=== PATIENT | female | born 1985 | race Caucasian/White ===

== ENCOUNTER 2023-05-13 05:50 | Day surgery (SDC) | payer OTHER, SELFPAY ==
[2023-05-01 08:22] VITALS: BMI 19.8
[2023-05-01 10:38] VITALS: BMI 19.5
[2023-05-13] VITALS (8 sets, daily range): BP systolic 101–126; BP diastolic 54–82; PULSE 55–108; RESP 15–76; TEMP 36.1–36.8; O2SAT 100; BMI 19.7
--- NOTE | 2023-05-13 06:00 | W.PM.PROC2 ---
Procedure Note - Detailed Date of Procedure 05/13/23 Pre-op Diagnosis Micromastia Post-op Diagnosis Same Procedure Performed Bilateral breast fat grafting Surgeon Doron Maurice MD Anesthesia General Findings Wever sites: Abdomen, Flank, Back, Medial Thighs, Medial Knees Lipoaspirate: 600cc Fat grafting: Right breast: 85 cc Left breast: 85 cc Description of Procedure She is here today for the above procedures. Previously and again today the risks, benefits, alternatives were discussed in extensive detail. I wanted them to be very realistic about the risks involved as well as expectations. Again spent extensive time reviewing all her options and the limitations of her procedure. She understands she has very limited harvest and receipt site and the real limitations of this procedure for her in addition to traditional risks discussed. We discussed aftercare and what to monitor for. I was very upfront about the risks of wound breakdown leading to loss of skin, open wounds, fat necrosis, oil cysts, palpable masses and need for additional procedures with permanent deformity. We discussed DVT/PE risks and management. Made sure answered all of their questions to their satisfaction today and consent was obtained. She was marked in the preoperative holding area with their verification. The patient was taken to the operating room. Anesthesia was provided by anesthesiology. Placed prone on the operating room table with care taken to protect from injury. Prepped and draped in a standard sterile fashion. A surgical time-out was taken. Stab incisions were made and tumescent solution was infiltrated. Once adequate time was allowed for hemostasis a multihole 3mm fat harvest cannula was utilized to complete suction lipectomy in multiple planes and passes. This continued based on pre-operative planning, intra-operative observation, and rolling pinch test which were in full agreement. Wever was to a MicroAire gravity seperation cannister. Patient was then placed supine with care taken to protect from injury. Stab incisions were made and tumescent solution infiltrated. Suction lipectomy continued as described above. Once a maximal harvest of adipose was completed with verified gravity separation of the adipose tissue. The inferior fluid was removed and we utilized only the central adipose tissue. 50cc syringes were utilized to remove the adipose tissue. The suction tubing was trimmed and utilizing a 3mm cannula the adipose tissue was introduced into bilateral breast trough stab incisions. This was in multiple planes and passes with a MicroAire handpiece on vibratory motion. The automotive service assistant managed the syringes and advanced through tubing so I was able to focus on placement and cannula position throughout. This was based on preoperative planning and intraoperative observations which were in full agreement. The patient was placed in a sitting position at times to verify. Dressings were placed. [place] and taken to the PACU without difficulty. All instrument and sponge counts were correct at the end of the case. Estimated Blood Loss 20 Drains No Packing No Pathology None sent Complications No immediate complications Condition Stable Disposition PACU
[2023-05-13] MEDS: LACTATED RINGERS 1,000 ML 30 ML IV CONT ×2 (06:52→10:05)
--- NOTE | 2023-05-13 07:08 | WPDANESEPPF ---
Anes - Initial Pre Proc Eval Procedure: Operation Date: 05/13/23 07:30 Proposed Procedures p Bilateral Breast Fat Grafting - Doron Maurice MD Date/Time: 05/13/23 07:08 Surgeon: Doron Maurice MD Pre Op Diagnosis: Micromastia Patient Data Age: 37 Gender: F Height: 1.55 m Weight: 47.4 kg Last Vital Signs Temp 36.8 C 05/13/23 06:27 Pulse 69 05/13/23 06:27 Resp 16 05/13/23 06:27 BP 103/77 05/13/23 06:27 Pulse Ox 100 05/13/23 06:27 O2 Del Method Room Air 05/13/23 06:27 Allergies Allergy/AdvReac Type Severity Reaction Status Date / Time No Known Allergies Allergy Unknown Verified 05/13/23 06:17 Home Medications Medication Instructions Recorded Confirmed Type multivit with minerals-iron 18 1 tablet PO DAILY 05/01/23 05/13/23 History mg-folic ac 400 mcg-vit K 25 mcg tablet (Adults Multivitamin) Patient hx anesthesia problems: none Family hx anesthesia problems: none Results Review: All pre-operative results and documents have been reviewed as part of the pre-operative evaluation. [facility] Family History Family History (Updated 11/17/13 @ 07:13 by DOCTOR UNKNOWN) Grandparent Hypertension Diabetes mellitus Father Carcinoma of colon Malignant neoplasm of prostate Mother Family history of malignant neoplasm of cervix Social History Social History Smoking status: Never smoker Second hand tobacco smoke exposure: No Alcohol intake: current Drinks per week: 4 Alcohol use details: 4 GLASSES OF WINE PER WEEK Substance use: never Substance use type: does not use Living arrangements: with family Spiritual care concerns: No Anes - Eval Final PreProcedure Day of Procedure 05/13/23 07:08 Patient weight: normal Heart: regular rate and rhythm Lungs: clear to auscultation Airway: Mallampati scale class 1 Neurological: alert and oriented Last oral intake: >/= 8 hours ASA classification: I Emergent: no Anesthetic plan: proceed Anesthesia type and monitoring: general ETT and standard monitoring Results Review: All pre-operative results and documents have been reviewed as part of the pre-operative evaluation. Informed Consent: The patient's anesthetic plan and its attendant risks and benefits were discussed with the patient/family/POA. Questions were solicited and answers provided to the satisfaction of the patient/family/POA.
--- NOTE | 2023-05-13 07:20 | WPDHPUPDATE1 ---
History and Physical Update Update Date/Time: 05/13/23 07:20 History and Physical has been reviewed, including an updated exam of the patient. There are NO changes in the patient's condition. Risks, benefits, and alternatives have been discussed and questions answered. Patient agrees to proceed with procedure.
[2023-05-13] MEDS: SCOPOLAMINE 1 MG PATCH 1 PATCH TRANSDERM (07:23)
--- NOTE | 2023-05-13 07:23 | SUR.PREOP ---
0710; FEMALE STAFF IN ROOM WHILE DR TEJADA MARKED PT
[2023-05-13] MEDS: ceFAZolin SODIUM 2 GM/20 ML SW SYRINGE IV PUSH (07:28)
[2023-05-13] MEDS: LACTATED RINGERS IRRIG 1,000 ML, LIDOCAINE HCL 1% LOCAL INJ 50 ML, EPINEPHrine HCL INJ ... INFILTRATE ×4 (08:00→09:50)
[2023-05-13] MEDS: ONDANSETRON INJ 4 MG/2 ML VIAL IV PUSH (11:01)
--- NOTE | 2023-05-13 13:18 | WPDANESPN ---
Anes - Prog Note Post-Op Date/Time: 05/13/23 13:18 Cardiovascular status: normal Respiratory status: normal Airway patency: baseline Mental status: baseline Post-Op hydration status: normal Vital Signs: Last Vital Signs Temp 36.1 C L 05/13/23 10:05 Pulse 76 05/13/23 11:03 Resp 20 05/13/23 11:03 BP 119/62 05/13/23 11:03 Pulse Ox 100 05/13/23 11:03 O2 Del Method Room Air 05/13/23 11:03 O2 Flow Rate 5 05/13/23 10:22 Pain Score (VAS): 2 I/O: Intake & Output 05/12/23 05/13/23 05/13/23 23:59 07:59 15:59 Intake Total 1300 Balance 1300 Post-procedural complaints: none Patient Feedback: Patient satisfied with anesthetic care. Other Findings: Patient vital signs back to baseline. Patient denies nausea and vomiting. Patient's pain under control. Patient OK for discharge.
== END 2023-05-13 11:48 | disposition home or self-care (01) ==
PROVIDERS: Visit Provider Surgery Plastic and Reconstructive Surgery
PROC: (CPT 15769; principal; 2023-05-13 07:30)
DX: N64.82 Hypoplasia of breast (principal)
CPT/HCPCS: 15771; 15772

== ENCOUNTER 2024-10-17 16:50 | Outpatient (CLI) | payer OTHER, SELFPAY ==
--- NOTE | ~2024-10-17 | XR_ITS ---
EXAMINATION: SCOLIOSIS DATE: 10/25/2024 7:28 CDT INDICATION: Scoliosis TECHNIQUE: Standing AP and lateral views of the thoracolumbar spine FINDINGS: There are 12 rib bearing thoracic vertebral bodies and 5 non-rib bearing lumbar type verteb ral bodies. There is no listhesis, compression deformity or vertebral body anomalies. There is mild levoscoliosis of the thoracolumbar spine measuring 9 degrees centered at T8-9. IMPRESSION: 1. Mild levoscoliosis measuring 9 degrees centered at T8-9. 2. No vertebral body anomalies. Reviewed, dictated and finalized at location A.
== END 2024-10-17 16:51 | disposition home or self-care (01) ==
PROVIDERS: PCP Nurse Practitioner Family; Visit Provider Nurse Practitioner Family
DX: M41.84 Other forms of scoliosis, thoracic region (principal)
CPT/HCPCS: 72082

== ENCOUNTER 2024-11-07 15:54 | Outpatient (CLI) | payer OTHER, SELFPAY ==
--- OUTSIDE RECORDS SUMMARY | 2024-11-07 16:08 | XMS_ITS | Clinical Summary ---
Author Organization [facility] Address [address] [place] [address] Care Team Providers Care Tank Farm Operator Name Role Phone Unavailable Primary Care Provider Unavailabl e Social History Tobacco Use Types Packs/Day Years Used Date Smoking Tobacco: Never Assessed Comments Unknown Sex and Gender Information Value Date Recorded Sex Assigned at Not on file Legal Sex Female 1:08 PM EDGE DYER Gender Identity Not on file Sexual Orientation Not on file Plan of Treatment Health Maintenance Due Date Last Done Comments HPV VACCINES (1 - 3-dose series) 06/19/1998 DTAP/TDAP/TD VACCINES (1 - Tdap) 06/19/2002 HEPATITIS B VACCINES (1 of 3 - 19+ 3-dose series) 05/23 HPV/Cotest (21-29) 06/19/2004 CERVICAL CANCER SCREENING 06/19/2013 HPV/Cotest (30-65) 06/19/2013 PAP SMEAR 06/19/2013 BREAST CANCER SCREENING 05/05/2024 05/05/2023 INFLUENZA VACCINE (#1) 2024 Procedures Procedure Name Priority Date/Time Associated Diagnosis Comments MAMMO 3D ZARINA SCREEN BILAT W OR WO CAD Routine 05/05/2023 3:40 PM EDGE DYER Visit for screening mammogram from Last 3 Months or Most Recently Relevant to Health Maintenance Results * MAMMO 3D ZARINA SCREEN BILAT W OR WO CAD (05/05/2023 3:40 PM EDGE DYER) Anatomical Region Laterality Modality Breast Bilateral Mammography 05/05/2023 3:41 PM EDGE DYER Impressions 05/05/2023 4:21 PM EDGE DYER IMPRESSION: No mammographic evidence for malignancy. Recommend routine yearly followup. OVERALL FINAL ASSESSMENT: BI-RADS CATEGORY 1: Negative Narrative 05/05/2023 4:21 PM EDGE DYER BILATERAL SCREENING DIGITAL MAMMOGRAM WITH 3D TOMOSYNTHESIS AND CAD DATE: 05/05/2023 3:40 PM HISTORY: Annual screening study. COMPARISON: None. Baseline. TECHNIQUE: A bilateral screening mammogram was performed. Low-dose full-field digital breast tomosynthesis examination was performed with 2D and 3D acquisitions. Examination is read in conjunction with computer aided detection. BREAST COMPOSITION: Extremely dense, which limits the sensitivity of mammography FINDINGS: No suspicious masses, suspicious calcifications, or areas of asymmetry or distortion are identified. Ramin Hooper NP MAMMO ORDERABLES Final Result from Last 3 Months or Most Recently Relevant to Health Maintenance Insurance [facility] [place] O [id number]
[2024-11-07 16:47] LABS: Anion Gap 9 mmol/L (4-12); Blood Urea Nitrogen 11 mg/dL (7-17); Calcium 9.6 mg/dL (8.4-10.2); Carbon Dioxide 26 mmol/L (22-30); Chloride 101 mmol/L (98-107); Estimated Glomerular Filt Rate > 60; Glucose 89 mg/dL (65-110); Potassium 4.3 mmol/L (3.4-5.0); Sodium 136 mmol/L (137-145)
== END 2024-11-07 15:55 | disposition home or self-care (01) ==
LOC: ANHLAB 15:55
PROVIDERS: Visit Provider Anesthesiology
DX: Z01.818 Encounter for other preprocedural examination (principal); T50.2X5A Adverse effect of carbonic-anhydrase inhibitors, benzothiadiazides and other diuretics, initial encounter
CPT/HCPCS: 36415; 80048

== ENCOUNTER 2024-11-23 08:03 | Day surgery (SDC) | payer OTHER, SELFPAY ==
--- NOTE | 2024-11-07 13:49 | PC.NURSE ---
PRE-OPERATIVE [address] [address] 1. Report to the Surgery Center Waiting Room, the entrance is the first door on the right after passing through the automatic sliding doors, at time __08:00__on qhin____[id number] . OR Time:___09:30____ . - Time changes happen often and if your time is changed the preop area will call you the afternoon before. - You and your visitor will be asked to self-screen and do not enter if you have any COVID symptoms. - Two visitors over, age 16 and older, are allowed.? NO children visitors are allowed at this time. - A mask is optional within the hospital at this time. 2. [email or web address] 3. Take the following medications with a SIP of water the morning of surgery: 1.____N/A 2. 3. Medications to discontinue per physician order: 1. VITS X3DAYS date to discontinue: 4. No make-up, nail ugandan, hairspray, perfume, deodorant, or body powder the day of surgery. No jewelry (including any body piercings) or valuables the day of surgery. Please take a shower or bath the night before, or the morning of, surgery with an antibacterial soap. Wear comfortable, loose fitting clothing. Children are encouraged to wear pajamas. - Jewelry must be removed prior to entering the operating room. Rings and piercings that are not removed will be cut off. The center will not accept responsibility for valuables. Please leave all valuables, including medications, at home the day of surgery. 5. When going home after surgery, a licensed vending route driver must drive you home. NO public transportation without another adult. We recommend someone to stay with you, no alcoholic beverages, driving or important decision making for 24 hours after surgery. For pediatric surgeries, we recommend two adults to accompany a child home. 6. Follow any additional instructions given by your physician. Telephone instructions given to: PATIENT and asked if any additional questions and then verbalized understanding. Patient advised to call surgeon office or the surgery center at [phone] if any additional questions.
[2024-11-23] VITALS (8 sets, daily range): BP systolic 111–123; BP diastolic 67–86; PULSE 71–88; RESP 14–16; TEMP 36.4–37.1; O2SAT 100; BMI 18.6
--- OUTSIDE RECORDS SUMMARY | 2024-11-23 08:06 | XMS_ITS | Clinical Summary ---
Author Organization [facility] Address [address] [place] [address] Care Team Providers Care Cooling Tower Technician Name Role Phone Coco Girard Primary Care Provider [phone] Family History Medical History Relation Comments Breast Cancer Neg Hx Social History Tobacco Use Types Packs/Day Years Used Date Smoking Tobacco: Never Assessed Comments Unknown Sex and Gender Information Value Date Recorded Sex Assigned at Not on file Legal Sex Female 7:00 PM CDT Gender Identity Not on file Sexual Orientation Not on file Plan of Treatment Health Maintenance Due Date Last Done Comments Cervical Cancer Screening Pap Smear (Age 30 to 64) Every 3 Years 1983 Annual Physical 06/19/1986 Hepatitis C 06/19/2001 Hepatitis B Vaccines (1 of 3 - 19+ 3-dose series) 06/19/2002 DTaP, Tdap and Td Vaccines (7 - Td or Tdap) 08/19/2007 08/18/1997, 11/17/1988, 12/03/1987, Additional history exists HPV Vaccines (1 - 3-dose SCDM series) 06/19/2010 Cervical Cancer Screening Pap with HPV Testing (Age 30 to 64) Every 5 Years 06/19/2013 Cervical Cancer Screening with HPV 06/19/2013 COVID-19 Vaccine ( season) 2024 07/25/2020 Mammogram Screening 06/30/2026 06/30/2024, Meningococcal B Vaccine Aged Out No l onger eligible based on patient's age to complete this topic Meningococcal Vaccine Aged Out No aramis sha eligible based on patient's age to complete this topic Pneumococcal Vaccine: Pediatrics (0 to 5 Years) and At-Risk Patients (6 to 49 Years) Aged Out No longer eligible based on patient's age to complete this topic RSV Immunizations Under 20 Months Aged Out No longer eligible based on patient's age to complete this topic Procedures Procedure Name Priority Date/Time Associated Diagnosis Comments MG SCREENING W ZARINA CHRISTOPHER DIGI Routine 06/30/2024 8:53 AM CDT Encounter for other screening for malignant neoplasm of breast from Last 3 Months or Most Recently Relevant to Health Maintenance Results * MG SCREENING W ZARINA CHRISTOPHER DIGI (06/30/2024 8:53 AM CDT) Anatomical Region Laterality Modality Breast Bilateral Mammography 07/29/2024 5:07 PM CDT Addenda Addendum by Ha Flor MD on 08/03/2024 9:13 AM CDT [address] [address] Addendum. Prior exam of 05/05/2023 is now received. Exam remains BI-RADS Category 2 Ordered By: ESPERANZA PICHARDO Interpreted By: Hannah Flor, 08/03/2024 9:09 AM Impressions 07/29/2024 5:11 PM CDT ===== IMPRESSION: ===== 1. No mammographic evidence of malignancy. Assessment: ACR BI-RADS 2 - BENIGN FINDING(S) Recommendation: 1:Routine Screening Bilateral Comments: Ordered By: ESPERANZA PICHARDO Interpreted By: Hannah Flor, 07/29/2024 5:07 PM Narrative 07/29/2024 5:11 PM CDT [facility] [id number] [place] [id number] EXAMINATION: Digital bilateral screening mammogram with 3-D tomosynthesis EXAM DATE/TIME: 06/30/2024 7:59 AM REASON FOR EXAM: Routine screening Patient states adipose tissue injected into her breasts in April 2023 COMPARISON: None available. Multiple requests made. Prior is not received. Technique: Digital screening mammography of both breasts was performed in addition to 3-D Tomosynthesis technique. This study was read with the assistance of a computer-aided detection system. Tissue density: The breasts are heterogeneously dense, which may obscure small masses. Findings: There is no focal asymmetry, dominant mass lesion, area of skin thickening, or cluster of suspicious appearing calcifications in either breast to suggest malignancy. Multiple benign appearing nodules. us Esperanza Pichardo NP MAMMO Edited Result - Final from Last 3 Months or Most Recently Relevant to Health Maintenance Insurance [facility] Care Teams Cooling Tower Technician Relationship Specialty Start Date End Date Coco Girard PA [address] [place] [address] PCP - General PHYSICIAN SQUASH CENTRE MANAGER 06/30/24
--- OUTSIDE RECORDS SUMMARY | 2024-11-23 08:07 | XMS_ITS | Clinical Summary ---
Author Organization [facility] Address [address] [place] [address] Care Team Providers Care Whipper Name Role Phone Unavailable Primary Care Provider Unavailabl e Social History Tobacco Use Types Packs/Day Years Used Date Smoking Tobacco: Never Assessed Comments Unknown Sex and Gender Information Value Date Recorded Sex Assigned at Not on file Legal Sex Female 1:08 PM DATA PROCESSING SUPERVISOR Gender Identity Not on file Sexual Orientation Not on file Plan of Treatment Health Maintenance Due Date Last Done Comments DTAP/TDAP/TD VACCINES (1 - Tdap) 06/19/2002 HEPATITIS B VACCINES (1 of 3 - 19+ 3-dose series) 05/23 HPV/Cotest (21-29) 06/19/2004 HPV VACCINES (1 - 3-dose SCDM series) 06/19/2010 CERVICAL CANCER SCREENING 06/19/2013 HPV/Cotest (30-65) 06/19/2013 PAP SMEAR 06/19/2013 BREAST CANCER SCREENING 05/05/2024 05/05/2023 INFLUENZA VACCINE (#1) 2024 Procedures Procedure Name Priority Date/Time Associated Diagnosis Comments MAMMO 3D ZARINA SCREEN BILAT W OR WO CAD Routine 05/05/2023 3:40 PM DATA PROCESSING SUPERVISOR Visit for screening mammogram from Last 3 Months or Most Recently Relevant to Health Maintenance Results * MAMMO 3D ZARINA SCREEN BILAT W OR WO CAD (05/05/2023 3:40 PM DATA PROCESSING SUPERVISOR) Anatomical Region Laterality Modality Breast Bilateral Mammography 05/05/2023 3:41 PM DATA PROCESSING SUPERVISOR Impressions 05/05/2023 4:21 PM DATA PROCESSING SUPERVISOR IMPRESSION: No mammographic evidence for malignancy. Recommend routine yearly followup. OVERALL FINAL ASSESSMENT: BI-RADS CATEGORY 1: Negative Narrative 05/05/2023 4:21 PM DATA PROCESSING SUPERVISOR BILATERAL SCREENING DIGITAL MAMMOGRAM WITH 3D TOMOSYNTHESIS [...] to Health Maintenance Insurance [facility] OPTIONS [id number]
[2024-11-23] MEDS: LACTATED RINGERS 1,000 ML 30 ML IV CONT ×2 (08:52→11:38)
[2024-11-23] MEDS: TRANEXAMIC ACID 1,000 MG/10 ML AMPUL 1000 MG IV PUSH (08:52)
--- NOTE | 2024-11-23 09:28 | WPDHPUPDATE1 ---
History and Physical Update Update Date/Time: 11/23/24 09:28 History and Physical has been reviewed, including an updated exam of the patient. There are NO changes in the patient's condition. Risks, benefits, and alternatives have been discussed and questions answered. Patient agrees to proceed with procedure.
--- NOTE | 2024-11-23 09:28 | W.PM.PROC2 ---
Procedure Note - Detailed Date of Procedure 11/23/24 Pre-op Diagnosis Micromastia Post-op Diagnosis Same Procedure Performed Bilateral augmentation mammaplasty Surgeon Doron Maurice MD Anesthesia General Findings Bilateral Naty SoftTouch 250cc Right: REF# [id number] SN [id number] Dual plane 1 Left: REF# [id number] SN [id number] Dual plane 1 Description of Procedure She is here today for bilateral breast augmentation. Previously and again today the risks, benefits, alternatives were discussed in extensive detail. I wanted her to be very realistic about the risks involved as well as expectations. We discussed aftercare and what to monitor for. We discussed again today that this is a tradeoff of volume (she desires limited volume) versus filling the skin envelope (volume required to do so). I explained that I can not guarantee this will fully fill her skin envelope and she understands her options of larger implants to assist as well as the option of mastopexy to tighten the space. This was previously (at multiple clinic visits) and again today outlined extensively to make sure she is making the best decision for her and making sure she clearly understands the limitations of what we can and can not accomplish with this procedure. Also, today she does comment that bras cause discomfort on her ribs centrally and understands this will not improve that (and could worsen). She repeats everything discussed in this paragraph back clearly and appears to have a strong understanding. Made sure answered all of her questions to her satisfaction today and consent was obtained. Marked in the preoperative holding area with their verification. The patient was taken to the operating room placed supine on the operating table. Anesthesia was provided by anesthesiology. A surgical time-out was taken. We cleansed the skin and 1% lidocaine and 0.25% Marcaine with epinephrine was used anesthetize as a field block. She was prepped and draped in a standard sterile fashion. Tegaderm nipple Ureña were placed. A 15 blade used to make an incision along the inframammary fold. Dissection was continued at 45 degree angle until the chest wall as identified. I incised the pectoralis major along its inferior border and completely released the inferior border leaving the medial border intact. I created a subpectoral pocket in the appropriate dimensions based on our preoperative planning for the implant. I then copiously irrigated with saline solution and verified a strict hemostasis. Next the use a triple antibiotic and Betadine containing solution to irrigate the pocket. I washed my gloves with the triple antibiotic and Betadine solution. We washed the implant immediately upon opening it with this solution and only opened it when we needed it. I used implant funnel and no-touch technique. The implant was introduced into the pocket using the funnel. Having verified positioning of the implant this was closed using 2-0 PDS followed by 3-0 Monocryl in a running subcuticular 4-0 Monocryl followed by tissue glue. Fluffs and surgical bra were placed. Patient was awoke and taken to PACU without difficulty. All instrument sponge counts were correct at the end of the case. Estimated Blood Loss 20 Drains No Packing No Pathology None sent Complications No immediate complications Condition Stable Disposition PACU
--- NOTE | 2024-11-23 09:32 | WPDANESEPPF ---
Anes - Initial Pre Proc Eval Procedure: Operation Date: 11/23/24 09:30 Proposed Procedures p Bilateral Breast Augmentation Mammoplasty - Doron Maurice MD Date/Time: 11/23/24 09:32 Surgeon: Doron Maurice MD Pre Op Diagnosis: Micromastia Patient Data Age: 39 Gender: F Height: 1.55 m Weight: 44.75 kg Last Vital Signs Temp 98.7 F 11/23/24 08:29 Pulse 71 11/23/24 08:29 Resp 16 11/23/24 08:29 BP 112/85 11/23/24 08:29 Pulse Ox 100 11/23/24 08:29 O2 Del Method Room Air 11/23/24 08:29 Allergies Allergy/AdvReac Type Severity Reaction Status Date / Time No Known Allergies Allergy Unknown Verified 11/23/24 08:20 Home Medications ?Medication ?Instructions ?Recorded ?Confirmed ?Type multivit with minerals-iron 18 1 tablet PO DAILY 05/01/23 11/23/24 History mg-folic ac 400 mcg-vit K 25 mcg tablet (Adults Multivitamin) progesterone micronized 100 mg 100 mg PO QAM 03/21/24 11/23/24 History capsule spironolactone 100 mg tablet 100 mg PO DAILY 03/21/24 11/23/24 History testosterone cypionate 100 mg/mL 50 mg IM WEEKLY 03/21/24 11/23/24 History intramuscular oil (Depo-Testosterone) biotin 10,000 mcg capsule 5,000 mcg PO DAILY 11/07/24 11/23/24 History Patient hx anesthesia problems: post op nausea/vomiting Family hx anesthesia problems: none Results Review: All pre-operative results and documents have been reviewed as part of the pre-operative evaluation. [facility] Family History Family History Grandparent Hypertension Diabetes mellitus Father Carcinoma of colon Malignant neoplasm of prostate Mother Family history of malignant neoplasm of cervix Diabetes mellitus Social History Social History Social History: 07/05/24 patient declined SDOH Smoking status: Never smoker Second hand tobacco smoke exposure: No Alcohol intake: current Drinks per week: 4 Alcohol use details: 4 GLASSES OF WINE PER WEEK Substance use: never Substance use type: does not use Do You Feel Safe in your Home?: Yes Lack of Transportation: No Lack of Food: Never True Current Housing: I Have Housing Concerned About Future Housing: No Difficulty Paying Gas/Electric Bills: No Difficulty Paying for Meds: No Currently Unemployed: No Education: Bachelor's Degree Difficulty w/ Childcare or Family Care: No Living arrangements: with family Additional living arrangements comments: and kids Spiritual care concerns: No Anes - Eval Final PreProcedure Day of Procedure 11/23/24 09:32 Heart: regular rate and rhythm Lungs: clear to auscultation Airway: Mallampati scale class 1 Neurological: alert and oriented Last oral intake: >/= 8 hours ASA classification: I Anesthetic plan: proceed Anesthesia type and monitoring: general Results Review: All pre-operative results and documents have been reviewed as part of the pre-operative evaluation. Informed Consent: The patient's anesthetic plan and its attendant risks and benefits were discussed with the patient/family/POA. Questions were solicited and answers provided to the satisfaction of the patient/family/POA.
[2024-11-23] MEDS: SCOPOLAMINE 1 MG PATCH 1.5 PATCH TRANSDERM (09:38)
[2024-11-23] MEDS: ceFAZolin SODIUM 2 GM/20 ML SW SYRINGE IV PUSH (09:48)
[2024-11-23] MEDS: LIDO 1%/EPINEPHRINE 1:100,000 20 ML VIAL 30 ML INFILTRATE (10:00)
--- NOTE | 2024-11-23 10:27 | WPDANESPN ---
Anes - Prog Note Post-Op Date/Time: 11/23/24 10:27 Vital Signs: Last Vital Signs Temp 98.7 F 11/23/24 08:29 Pulse 71 11/23/24 08:29 Resp 16 11/23/24 08:29 BP 112/85 11/23/24 08:29 Pulse Ox 100 11/23/24 08:29 O2 Del Method Room Air 11/23/24 08:29 Pain Score (VAS): no Patient Feedback: Patient satisfied with anesthetic care.
[2024-11-23] MEDS: fentaNYL CITRATE INJ (*CRX) 100 MCG/2 ML VIAL (11:15)
--- NOTE | 2024-11-23 11:35 | SUR.PHASEI ---
PT AWAKE AND ALERT. STATES PAIN TOLERABLE AND DOWN TO 3/10. JUST SORE NOW DENIES ANY NAUSEA
== END 2024-11-23 12:33 | disposition home or self-care (01) ==
PROVIDERS: PCP Nurse Practitioner Family; Visit Provider Surgery Plastic and Reconstructive Surgery
PROC: (CPT 19325; principal; 2024-11-23 09:30)
DX: Z41.1 Encounter for cosmetic surgery (principal); N64.82 Hypoplasia of breast
CPT/HCPCS: 19325